=== PATIENT | male | born 1960 | race American Indian/Alaskan Native ===

== ENCOUNTER 2016-11-05 09:00 | Day surgery (SDC) | payer MEDICAID ==
--- NOTE | 2016-11-05 11:44 | Anesthesia Consultation ---
Anesthesia Consult and Med Hx Date of service: 11/05/16 - Airway Anesthetic Teeth Evaluation: Poor, Chipped ROM Head & Neck: Adequate Mental/Hyoid Distance: Adequate Mallampati Class: Class I Intubation Access Assessment: Good - Pulmonary Exam CTA: Yes - Cardiac Exam Cardiac Exam: RRR - Pre-Operative Health Status ASA Pre-Surgery Classification: ASA3 Proposed Anesthetic Plan: MAC - Pulmonary Hx Smoking: Yes - Cardiovascular System Hx Hypertension: Yes
--- NOTE | 2016-11-05 11:45 | Anesthesia Day of Surgery ---
Anesthesia Day of Surgery - Day of Surgery Patient Examined: Yes Patient H&P Reviewed: Yes Patient is NPO: Yes
[2016-11-05] MEDS ORDERED: NACL 0.9% 1000 ML 1,000 ML IV SCH (12:00)
[2016-11-05] MEDS ORDERED: XYLOCAINE 1% 20 mL ONE (13:17)
[2016-11-05] MEDS ORDERED: DIPRIVAN 10 MG/ML IV ONE ×4 (13:34→14:45)
[2016-11-05] MEDS ORDERED: WATER FOR IRRIG STERILE IR ONE (13:44)
--- NOTE | 2016-11-05 15:42 | Operative Report ---
Operative Report Operative Report: Date of procedure: 11/05/2016 Procedure: Colonoscopy with snare polypectomy, multiple hot biopsy polypectomies , multiple polyp ablations, cold biopsies.. Attending physician: Jluis Young MD Final Operations Technician: Jluis Young MD Indication: Patient is a 56-year-old male who presents for screening colonoscopy. He has a history of altered bowel habits and diffuse abdominal pain. A colonoscopy serves to evaluate patients symptoms and also for colorectal cancer screening.. Consent: Informed consent was obtained after advising the patient and family regarding nature of this procedure, its indications, potential benefits as well as possible complications including but not limited to bleeding perforation and adverse reaction to medication, infection as well as other cardiopulmonary complications. An informed written and verbal consent was then obtained after due opportunity was provided for questions and answers. Monitoring: Patient was monitored continuously with pulse oximetry and electrocardiographic recordings as well as blood pressure recordings. Vital signs remained stable throughout this procedure with no untoward events. Preoperative assessment: Patient was assessed immediately prior to this procedure for capacity to tolerate monitored anesthesia care and moderate sedation as well as general anesthesia. Patient's ASA classification is 2, Mallampati class is 2, Hyomental distance is 3. Instrument: Nervogrid videocolonoscope Medications: Propofol given intravenously in divided doses. For details please refer to anesthesia records. Description of procedure: Patient was placed in the left lateral decubitus position after achieving sedation, a digital rectal examination was performed following which the colonoscope was introduced into the anal verge and advanced to the cecum which was identified by the cecal valve, the appendiceal orifice, as well as by the cecal strap and direct transillumination. The colonoscope was subsequently withdrawn with careful inspection of all mucosal surfaces. Patient tolerated this procedure well and was subsequently taken to the recovery room. The following findings were noted. Findings: Patient had substantial retained stool in various sections of the colon but in particular in the ascending colon and the cecum. In the rectum, patient had diminutive polyps. There were 6 of these polyps. These were removed by hot biopsy polypectomy. There were retrieved. There were 2 additional diminutive polyps that were ablated in the rectum. The sigmoid colon , recent had 9 polyps. These measured between 4 mm to about 1 cm. The polyps were of differnt configurations including sessile polyps and flat polyps. All polyps removed by hot biopsy polypectomy and retrieved. Again there were 2 diminutive polyps there were ablated. There was scattered diverticula in sigmoid colon and descending colon. In the descending colon, patient had one polyp that was removed by hot biopsy polypectomy and retrieved. In the transverse colon, patient had 3 polyps these polyps were removed by hot biopsy polypectomy and retrieved. In the ascending colon, patient had 3 additional polyps that were removed by hot biopsy polypectomy and retrieved. One of the polyp base was ablated. In the cecum at the appendiceal orifice there was a hypervascular lesion that appeared to be endophytic growing away from the lumen. It was very friable and bled easily on contact. Several biopsies were obtained for histopathology. It should be noted also that in the sigmoid colon 2 of the polyps were removed by snare electrocautery and retrieved. On the retroflex view at the anal verge patient had internal hemorrhoids. Patient also had scattered diverticula in the descending colon as well. Impression: Multiple colon polyps status post snare polypectomy, hot biopsy polypectomy and and ablation Cecal lesion status post cold biopsies Diverticulosis Substantial retained stool with poor colonoscopic preparation Internal hemorrhoids. . Plan: Follow pathology report. High-fiber diet. Repeat colonoscopy in 3 months. It should however be noted that he the cecal biopsies suggest a neoplasm patient will require resection.
--- NOTE | 2016-11-05 15:43 | Discharge Summary ---
Short Stay Discharge Plan Activity: advance as tolerated Weight Bearing Status: Weight Bear as Tolerated Diet: regular Additional Instructions: Post Sedation D/C Instructions When you return home you may resume your regular diet unless otherwise directed. -Go directly home from the hospital and rest quietly. You may resume normal activities tomorrow. - Do NOT drive, return to work, operate any machinery or make any important personal or business decisions today. -Do NOT drink any alcohol or take nerve or sleeping drugs. They add to the effects of the medicine still present in your body. Follow up with: GUSTAVO MERCER MD [Primary Care Provider] - 7 Days
[2016-11-05 16:02] VITALS: BP 165/69
--- NOTE | 2016-11-06 02:09 | Post Anesthesia Evaluation ---
- Post Anesthesia Evaluation Patient Participated: Yes Airway Patent: Yes Stable Respiratory Function: Yes Nausea/Vomiting: No Temp > 96.8F: Yes Pain Manageable: Yes Adequeate Hydration: Yes Anesthesia Complications: No Block Receding Appropriately: Not Applicable Patient on Ventilator: No
== END 2016-11-05 09:01 | disposition home or self-care (01) ==
LOC: GIO 09:00
PROVIDERS: ATTEND Internal Medicine Gastroenterology
DX: K63.5 Polyp of colon (principal); D12.3 Benign neoplasm of transverse colon; K62.1 Rectal polyp; K57.30 Diverticulosis of large intestine without perforation or abscess without bleeding; K63.89 Other specified diseases of intestine; K64.8 Other hemorrhoids; I10 Essential (primary) hypertension; M19.90 Unspecified osteoarthritis, unspecified site; F17.210 Nicotine dependence, cigarettes, uncomplicated; Z72.89 Other problems related to lifestyle; Z79.899 Other long term (current) drug therapy
CPT/HCPCS: 88305; J2704; J7030